=== PATIENT | female | born 1960 | race Caucasian/White ===

== ENCOUNTER → 2018-07-15 | Outpatient (CLI) | payer BC ==
[~2018-07-15] MED LIST: REGADENOSON 0.4 MG/5 ML DISP.SYRIN. IV ONE
--- NOTE | 2018-07-15 14:16 | PCVCIMAG ---
APPROVED REPORT Imaging Protocol: Rest Tc-99m/Stress Tc-99m 1 day Study performed: 07/15/2018 09:19:27 Indication: Dyspnea upon exertion Patient Location: Out-Patient Stress Nurse: Katie Craft RN AL Tech:Haleigh Dunntimo [facility] Ht: 5 ft 3 in Wt: 190 lbs BSA: 1.89 m2 HR: 72 bpm BP: 160/71 mmHg BMI: 33.65 Medical History Medical History: HTN, Hyperlipidemia Medications: Aspirin, atorvastatin, estradiol, fish oil, olmesartan Allergies: No known drug allergies Cardiac Risk Factors: Age Pretest Chest Pain Characteristics: No chest pain Resting Data Rest SPECT myocardial perfusion imaging was performed in supine position 45 minutes following the intravenous injection of 10.1 mCi of Tc-99m Sestamibi. Time of rest injection: 0915 Administration Route: IV Administration Site: Right Hand Pharmacologic Stress Pharmacologic stress test was performed by injecting Regadenoson 0.4 mg IV push over 10-15 seconds immediately followed by the intravenous injection of 33.9 mCi of Tc-99m Sestamibi. Time of stress injection: 1015 Administration Route: IV Administration Site: Right Hand Gated Stress SPECT was performed 45 minutes after stress injection. The images were gated to evaluate regional wall motion and calculate left ventricular ejection fraction. Stress Test Details Stress Test: Pharmacologic stress was paired with low level exercise. Reason for pharmacologic stress test: physical limitation dyspnea. HRMax Heart Rate (APMHR): 162 bpm Resting HR: 72 bpmTarget HR (85% APMHR): 137 bpm Max HR Achieved: 114 bpm % of APMHR: 70 Recovery HR: 78 bpm BP Resting BP: 160/71 mmHg Recovery BP: 132/59 mmHg ECG Resting ECG: SR with 1st degree AVB Stress ECG: ST with 1st degree AVB Recovery ECG: SR with 1st degree AVB Clinical Reason for Termination: Completed protocol Stress Symptoms: Dyspnea, Lightheaded Exercise duration: 4 min 00 sec Exercise capacity: 1.6 METs Symptoms resolved with caffeine. Stress ECG Conclusion 1. Adequate response to intravenous Lexiscan 2. Inadequate heart rate for ECG diagnosis Study Data Post stress, the left ventricular ejection was 72%.. SSS: 0 SRS: 0 SDS: 0 TID = 0.96. Perfusion There is a small area of moderately reduced uptake in the basal segment of the anterolateral wall which is seen on the stress images and improves on the resting images. This area thickens and moves normally and is most consistent with attenuation artifact although a small region of ischemia cannot be excluded. Wall Motion Normal left ventricular wall motion. Nuclear Conclusion ECG Findings: non-diagnostic Clinical Findings: negative for ischemia Nuclear Findings: equivocal Exercise Capacity: not assessed Left Ventricular Function: normal 1. Low to intermediate risk study based on a small region of improve uptake in the basilar anterolateral wall and echo correlation suggest <Conclusion> 1. Adequate response to intravenous Lexiscan 2. Inadequate heart rate for ECG diagnosis
--- NOTE | 2018-07-15 14:20 | PCVCIMAG ---
APPROVED REPORT Study performed: 07/15/2018 08:11:29 EXAM: Comprehensive 2D, Doppler, and color-flow Echocardiogram Patient Location: Echo lab Room #: 2Status: routine BSA: 1.89 HR: 62 bpmBP: 144/82 mmHg Rhythm: NSR Other Information Study Quality: Good Risk Factors: Cardiac Risk Factors: HTN, Hyperlipidemia Indications Dyspnea Hypertension/HDD 2D Dimensions IVSd: 7.36 (7-11mm)LVOT Diam: 19.80 (18-24mm) LVDd: 42.48 mm PWd: 7.61 (7-11mm)Ascending Ao: 32.82 (22-36mm) LVDs: 27.95 (25-40mm) Left Atrium: 39.10 (27-40mm) Aortic Root: 26.27 mm LV Single Plane 4CH: 55.10 % LV Single Plane 2CH: 57.82 % Biplane EF: 57.1 % Volumes Left Atrial Volume (Systole) Single Plane 4CH: 58.48 mLSingle Plane 2CH: 54.52 mL Biplane LA Volume: 56.00 mLLA ESV Index: 30.00 mL/m2 Aortic Valve AoV Peak Scooby.: 1.55 m/s AO Peak Gr.: 9.63 mmHgLVOT Max P.70 mmHg LVOT Max V: 0.96 m/s MADDY Vmax: 1.91 cm2 Mitral Valve E/A Ratio: 1.0 MV Decel. Time: 152.32 ms MV E Max Scooby.: 0.92 m/s MV A Scooby.: 0.94 m/s IVRT: 83.04 ms TDI E/Lateral E': 10.22E/Medial E': 13.14 Medial E' Scooby.: 0.07 m/s Lateral E' Scooby.: 0.09 m/s Pulmonary Valve PV Peak Scooby.: 0.77 m/sPV Peak Gr.: 2.40 mmHg Pulmonary Vein P Vein S: 0.54 m/sP Vein A: 0.36 m/s P Vein D: 0.50 m/sP Vein A Dur.: 83.0 msec P Vein S/D Ratio: 1.08 Tricuspid Valve TR Peak Scooby.: 2.03 m/s TR Peak Gr.: 16.42 mmHg TV Vmax: 0.57 m/sPA Pressure: 23.00 mmHg Left Ventricle The left ventricle is normal size. There is normal LV segmental wall motion. There is normal left ventricular wall thickness. Left ventricular systolic function is normal. The left ventricular ejection fraction is within the normal range. LVEF is 55-60%. The left ventricular diastolic function is normal. Right Ventricle The right ventricle is normal size. The right ventricular systolic function is normal. Atria The left atrium size is normal. The right atrium size is normal. Aortic Valve Aortic valve is trileaflet. The aortic valve is normal in structure and function. No aortic regurgitation is present. There is no aortic valvular stenosis. Mitral Valve The mitral valve is normal in structure. There is no mitral valve regurgitation noted. No evidence of mitral valve stenosis. Tricuspid Valve The tricuspid valve is normal in structure. Trace tricuspid regurgitation. Pulmonic Valve The pulmonary valve is normal in structure. There is no pulmonic valvular regurgitation. Great Vessels The aortic root is normal in size. The ascending aorta is normal in size. Aortic arch is normal in caliber. IVC is normal in size and collapses >50% with inspiration. Pericardium There is no pericardial effusion. There is no pleural effusion. <Conclusion> The left ventricle is normal size. LVEF is 55-60%. Aortic valve is trileaflet. The aortic valve is normal in structure and function. The mitral valve is normal in structure. The tricuspid valve is normal in structure. Trace tricuspid regurgitation. There is no pericardial effusion. There is no pleural effusion.
== END | disposition home or self-care (01) ==
LOC: PCVCIMAG 08:12
PROVIDERS: ATTEND Internal Medicine
DX: I10 Essential (primary) hypertension (principal); R06.09 Other forms of dyspnea
CPT/HCPCS: 78452; 93017; 93306; A9500; J2785